=== PATIENT | male | born 1980 | race African-American/Black ===

== ENCOUNTER 2018-02-03 12:43 | Emergency (ER) | payer MEDICAID ==
[~2018-02-03] VITALS: Ht 172.7 cm; Wt 105.0 kg
[2018-02-03 12:57] VITALS: BP 132/88
[2018-02-03] MEDS ORDERED: LURA40TA PO (12:59)
[2018-02-03] MEDS ORDERED: PRAZ1CAP5 PO (12:59)
[2018-02-03] MEDS ORDERED: PARO10TA87 PO (12:59)
== END 2018-02-03 13:55 | disposition home or self-care (01) ==
LOC: ER 12:43
DX: K04.7 Periapical abscess without sinus (principal); K08.109 Complete loss of teeth, unspecified cause, unspecified class; F43.10 Post-traumatic stress disorder, unspecified
CPT/HCPCS: 99283

== ENCOUNTER 2022-07-08 07:29 | Emergency (ER) | payer MEDICAID ==
[~2022-07-08] VITALS: Ht 172.7 cm; Wt 94.0 kg
[~2022-07-08 07:29] MED LIST: LURA40TA2 PO; PARO10TA87 PO; PRAZ1CAP5 PO
[2022-07-08] MEDS ORDERED: HYDROCODONE/ACETAMINOPHEN 5/325MG TABLET PO ONE (08:45)
[2022-07-08 08:52] VITALS: BP 149/88
[2022-07-08] MEDS ORDERED: IBUP-2029 MT (08:52)
[2022-07-08] MEDS ORDERED: CEPH500C2 MT (08:52)
== END 2022-07-08 09:16 | disposition home or self-care (01) ==
LOC: ER 08:23
DX: K04.7 Periapical abscess without sinus (principal); K08.89 Other specified disorders of teeth and supporting structures; F43.10 Post-traumatic stress disorder, unspecified
CPT/HCPCS: 99283

== ENCOUNTER 2024-08-20 13:07 | Emergency (ER) | payer MEDICAID ==
[~2024-08-20] VITALS: Ht 172.7 cm; Wt 100.0 kg
[~2024-08-20 13:07] MED LIST changes: +CEPH500C2 MT; +IBUP-2029 MT; +PARO-162 PO; -PARO10TA87 PO
[2024-08-20 13:15] VITALS: TEMP 99; O2SAT 100
[2024-08-20 13:57] VITALS: BP 128/74; PULSE 74; RESP 16
[2024-08-20] MEDS: KETOROLAC 30MG/ML VIAL IM ONE (13:57)
[2024-08-20] MEDS ORDERED: HYDR-4001 MT (14:16)
[2024-08-20] MEDS ORDERED: AMOX1TAB16 MT (14:16)
== END 2024-08-20 15:00 | disposition home or self-care (01) ==
LOC: ER 13:07
DX: R68.84 Jaw pain (principal)
CPT/HCPCS: 99283; 96372; J1885